=== PATIENT | female | born 1985 | race Caucasian/White ===

== ENCOUNTER → 2017-12-13 | Day surgery (SDC) | payer BC ==
--- NOTE | 2017-12-13 15:59 | ULT ---
LEFT BREAST BIOPSY WITH ULTRASOUND GUIDANCE: History: Left breast mass. Comparison: 01-13-17 FINDINGS: Successful ultrasound guided biopsy of a left breast mass measuring 2.2 cm x 1.9 cm x 1.1 cm. A total of two 14 gauge core biopsy samples were obtained. Samples were placed directly in formalin. Post biopsy clip was placed. Post biopsy mammogram was performed and demonstrates the clip to be with in the lesion. Separate biopsy mammogram report will be dictated. Technique: Consent obtained for an ultrasound guided biopsy of a left breast mass. Left breast was prepped and d raped in sterile fashion. 1% Lidocaine, buffered with sodium bicarbonate used for local anesthesia. U nder ultrasound guidance, a 14 gauge needle was used to obtained two biopsy samples. Samples were aby vasquez directly in formalin. Post biopsy clip was placed. Patient tolerated the procedure well. No immed iate or post procedure complication. IMPRESSION: Successful left breast biopsy with ultrasound guidance. POS: [facility]
== END ==
LOC: BICULT 12:31
PROVIDERS: ATTEND Surgery
PROC: 0HBU3ZX Excision of Left Breast, Percutaneous Approach, Diagnostic (ICD-10-PCS; principal; 2017-12-13)
DX: D24.2 Benign neoplasm of left breast (principal)
CPT/HCPCS: 19083; 88305